=== PATIENT | female | born 1950 ===

== ENCOUNTER 2016-11-14 21:42 | Emergency (ER) | payer OTHER ==
[~2016-11-14] VITALS: Ht 162.6 cm; Wt 70.3 kg
--- NOTE | 2016-11-14 22:10 | NUR ---
Patient walked into ER c/o right foot injury while trying to save dog from coyote. Patient foot has swelling with pain. No distress noted
[2016-11-14] MEDS ORDERED: CHOL200074 PO (22:13)
[2016-11-14] MEDS ORDERED: DOCU-270 PO (22:13)
[2016-11-14] MEDS ORDERED: OMEP20CA10 PO (22:13)
[2016-11-14] MEDS ORDERED: AMLO5TAB2 PO (22:13)
[2016-11-14] MEDS ORDERED: LOSA50TA3 PO (22:13)
[2016-11-14] MEDS ORDERED: GABA-532 PO (22:13)
--- NOTE | 2016-11-14 23:10 | NUR ---
Crutches dispensed. Pt instructed on proper use of crutches. Patient able to demonstrate correct use of crutches.
--- NOTE | 2016-11-14 23:21 | NUR ---
Patient discharged to home in stable conditon with friend taking patient home. Written and verbal after care instructions given. Patient verbalizes understanding of instructions.
[2016-11-14 23:23] VITALS: BP 128/75
== END 2016-11-14 23:23 | disposition home or self-care (01) ==
LOC: ER 21:42
DX: S93.401A Sprain of unspecified ligament of right ankle, initial encounter (principal); I10 Essential (primary) hypertension; K21.9 Gastro-esophageal reflux disease without esophagitis; Z88.8 Allergy status to other drugs, medicaments and biological substances; X50.9XXA Other and unspecified overexertion or strenuous movements or postures, initial encounter; Y93.89 Activity, other specified; Y92.9 Unspecified place or not applicable; Y99.9 Unspecified external cause status
CPT/HCPCS: 73610; 99284; A4663